=== PATIENT | female | born 1995 | race Caucasian/White ===

== ENCOUNTER 2017-02-01 10:54 | Emergency (ER) | payer MEDICAID ==
[~2017-02-01] VITALS: Ht 157.5 cm; Wt 68.6 kg
[~2017-02-01 10:54] MED LIST: CEFD300C37 PO; NAPR220C2 PO
[2017-02-01] MEDS ORDERED: SODIUM CHLORIDE FLUSH 10ML SYR IVF ONE (11:30)
[2017-02-01 11:45] LABS: HCG UR OBC PASS
[2017-02-01 11:48] LABS: PATH.CAST-FLAG NOT PRESENT; SPERM-FLAG NOT PRESENT; SRC-FLAG NOT PRESENT; XTAL-FLAG NOT PRESENT; YLC-FLAG NOT PRESENT
[2017-02-01 12:36] LABS: ASPARTATE AMINO TRANSFERASE 17 U/L (15-37); BLOOD UREA NITROGEN 17 mg/dL (7-18)
[2017-02-01 13:13] VITALS: BP 104/65
== END 2017-02-01 13:14 | disposition home or self-care (01) ==
LOC: ED 13:08
DX: K59.00 Constipation, unspecified (principal); N83.201 Unspecified ovarian cyst, right side; N39.0 Urinary tract infection, site not specified; R10.12 Left upper quadrant pain; R10.32 Left lower quadrant pain
CPT/HCPCS: 36415; 74000; 76830; 80053; 81001; 81025; 85025; 87086; 99285

== ENCOUNTER 2019-07-08 17:07 | Outpatient (CLI) | payer MEDICAID ==
[~2019-07-08] VITALS: Ht 157.5 cm; Wt 83.1 kg
[2019-07-08 17:00] VITALS: BP 113/63
[2019-07-08 19:07] LABS: MICROSCOPIC INDICATED
[2019-07-08 19:15] LABS: CLUE CELLS PRESENT (NONE SEEN); WET PREP WBCS FEW (FEW)
[2019-07-08 19:18] LABS: AMPHETAMINE SCREEN, URINE Negative (Negative); BARBITURATE SCREEN, URINE Negative (Negative); BENZODIAZEPINE SCREEN, URINE Negative (Negative); CANNABINOID SCREEN, URINE Negative (Negative); COCAINE SCREEN, URINE Negative (Negative); METHADONE SCREEN, URINE Negative (Negative); OPIATE SCREEN, URINE Negative (Negative)
[2019-07-08] MEDS ORDERED: METR500T PO ×2 (20:11→20:12)
== END 2019-07-08 20:26 | disposition home or self-care (01) ==
LOC: LDOP 17:07
PROVIDERS: ATTEND Obstetrics & Gynecology
DX: O23.42 Unspecified infection of urinary tract in pregnancy, second trimester (principal); O26.892 Other specified pregnancy related conditions, second trimester; G43.909 Migraine, unspecified, not intractable, without status migrainosus; Z3A.25 25 weeks gestation of pregnancy
CPT/HCPCS: 36415; 59025; 80307; 81001; 86592; 86803; 87086; 87210; 87340; 87389; 87491; 87591; 87808; 99211; G0463